=== PATIENT | female | born 1965 | race Caucasian/White ===

== ENCOUNTER → 2017-04-09 | Outpatient (CLI) | payer OTHER ==
[~2017-04-09] MED LIST: ACET325T96 PO; CALCTAB5 PO; MELO7.5T5 PO; MULT-513 PO; PREG1CAP70 PO; TRAM-10 PO
--- NOTE | 2017-04-09 16:41 | MAMMOGRAPHY REPORT ---
BILATERAL DIGITAL SCREENING MAMMOGRAM TOMOSYNTHESIS WITH CAD: 04/09/2017 CLINICAL HISTORY: Routine screening. Patient has no complaints. TECHNIQUE: Breast tomosynthesis in addition to standard 2D mammography was performed. Current study was also evaluated with a Computer Aided Detection (CAD) system. COMPARISON: Comparison is made to exams dated: 03/30/2016 mammogram, 03/27/2015 mammogram, 03/26/2014 m ammogram, 03/20/2013 mammogram, 03/14/2012 mammogram, and 03/12/2011 mammogram - [facility]. BREAST COMPOSITION: There are scattered areas of fibroglandular density in both breasts. FINDINGS: No suspicious masses, calcifications, or areas of architectural distortion are noted in e ither breast. There has been no significant interval change compared to prior exams. IMPRESSION: ACR BI-RADS CATEGORY 1: NEGATIVE There is no mammographic evidence of malignancy. A 1 year screening mammogram is recommended. The p atient will receive written notification of the results. Approximately 10% of breast cancers are not detected with mammography. A negative mammographic repor t should not delay biopsy if a clinically suggestive mass is present. Genet Villalta M.D. 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
== END | disposition home or self-care (01) ==
LOC: C.MAMM 13:25
PROVIDERS: ATTEND Family Medicine
DX: Z12.31 Encounter for screening mammogram for malignant neoplasm of breast (principal)

== ENCOUNTER → 2018-04-11 | Outpatient (CLI) | payer OTHER ==
[~2018-04-11] MED LIST changes: +ACET-1693 PO; -ACET325T96 PO
--- NOTE | 2018-04-11 15:24 | MAMMOGRAPHY REPORT ---
BILATERAL DIGITAL SCREENING MAMMOGRAM TOMOSYNTHESIS WITH CAD: 04/11/2018 CLINICAL HISTORY: Routine screening. Patient has no complaints. TECHNIQUE: Breast tomosynthesis in addition to standard 2D mammography was performed. Current study was also evaluated with a Computer Aided Detection (CAD) system. COMPARISON: Comparison is made to exams dated: 04/09/2017 mammogram, 03/30/2016 mammogram, 03/27/2015 ma mmogram, 03/26/2014 mammogram, 03/14/2012 mammogram, and 03/12/2011 mammogram - [facility]ter. BREAST COMPOSITION: There are scattered areas of fibroglandular density in both breasts. FINDINGS: There is a possible area of architectural distortion in the upper outer posterior left isabel ast, best seen on CC tomosynthesis slice 37/100), for which additional spot compression tomosynthesis views and possible ultrasound are recommended. No other suspicious mass, architectural distortion or cluster of microcalcifications is seen. IMPRESSION: ACR BI-RADS CATEGORY 0: INCOMPLETE EVALUATION: NEED ADDITIONAL IMAGING EVALUATION The possible area of architectural distortion in the upper outer posterior left breast needs addition al evaluation. The patient will be called to schedule an appointment. Approximately 10% of breast cancers are not detected with mammography. A negative mammographic report should not delay biopsy if a clinically suggestive mass is present. Dayna Mann M.D. ay/:04/11/2018 14:03:07 Slp: Cyndie CEJA)(Rachel), [facility] letter sent: Addl Imaging 0 BI-RADS Code: ACR BI-RADS Category 0: Incomplete Evaluation: Need Additional Imaging Evaluation
== END | disposition home or self-care (01) ==
LOC: C.MAMM 13:13
PROVIDERS: ATTEND Family Medicine
DX: Z12.31 Encounter for screening mammogram for malignant neoplasm of breast (principal)

== ENCOUNTER → 2018-06-21 | Outpatient (CLI) | payer OTHER ==
[~2018-06-21] MED LIST changes: +GADAVIST IV PRN
--- NOTE | 2018-06-23 07:58 | MAMMOGRAPHY REPORT ---
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 Patient present s for preoperative assessment. COMPARISON: Prior screening mammograms dated , 04/09/2017, 04/11/2018, diagnostic mammogram and u ltrasound dated 04/22/2018, ultrasound-guided core biopsy and postprocedure mammograms dated 05/05/2018. TECHNIQUE: Using a 1.5 Fransisca magnet and dedicated breast coil, multisequence axial images were obtain ed through the breasts. After uneventful IV administration of 11 mL of Gadavist, dynamic multiphase contrast-enhanced axial images, and sagittal postcontrast were obtained. Temporal subtraction axial images and 3-D MIP images are provided. Everything was then reviewed on a 3-D workstation, [employer]. FINDINGS: Right breast: There is minimal background parenchymal enhancement of the right breast. No suspicious enhancing mass, non-mass enhancement, architectural distortion or suspicious kinetics identified in the right breast. The right nipple areola complex is intact. The retromammary fat is intact. No avila spicious right axillary, subpectoral or internal mammary lymphadenopathy. Left breast: There is minimal background parenchymal enhancement of the left breast. There is focal non-mass enhancement with internal biopsy marker clip in the approximate 2:30 posterior left breast, which represents the recent biopsy-proven carcinoma. This non-mass enhancement has predominantly crispin teau associated kinetics and measures approximately 11 mm in widest transverse dimension by 19 mm in AP by 8 mm in craniocaudal dimension. There are no other suspicious enhancing masses, non-mass enhan cement, architectural distortion or suspicious kinetics in the left breast. The retromammary fat is intact. The left nipple areolar complex is intact. No suspicious left axillary, subpectoral or inte rnal mammary lymphadenopathy. IMPRESSION: ACR BI-RADS CATEGORY 6: KNOWN BIOPSY PROVEN MALIGNANCY 1. Focal non-mass enhancement is identified in the 2:30 posterior left breast measuring approximatel y 11 x 19 x 8 mm, representing representing the recent biopsy-proven carcinoma. 2. No other suspicious enhancing mass or non-mass enhancement is identified in either breast. No avila spicious axillary adenopathy identified bilaterally. 3. Await definitive surgical treatment. Dayna Mann M.D. 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
== END | disposition home or self-care (01) ==
LOC: C.MRI 06-08 15:20
PROVIDERS: ATTEND Surgery
DX: C50.412 Malignant neoplasm of upper-outer quadrant of left female breast (principal); Z17.0 Estrogen receptor positive status [ER+]